=== PATIENT | male | born 1960 | race Caucasian/White ===

== ENCOUNTER 2019-01-15 08:51 | Emergency (ER) | payer OTHER ==
[~2019-01-15] VITALS: Ht 182.9 cm; Wt 105.0 kg
[2019-01-15 08:55] VITALS: BP 136/87
== END 2019-01-15 09:59 | disposition home or self-care (01) ==
LOC: ED 09:06
DX: J04.0 Acute laryngitis (principal); L50.1 Idiopathic urticaria; R05 Cough; K21.9 Gastro-esophageal reflux disease without esophagitis; E78.5 Hyperlipidemia, unspecified; Z87.891 Personal history of nicotine dependence
CPT/HCPCS: 71046; 99282; 99283

== ENCOUNTER 2019-01-28 17:40 | Emergency (ER) | payer OTHER ==
[~2019-01-28] VITALS: Ht 182.9 cm; Wt 105.9 kg
[2019-01-28 17:46] VITALS: BP 148/76
== END 2019-01-28 19:33 | disposition home or self-care (01) ==
LOC: ED 18:12
DX: S29.011A Strain of muscle and tendon of front wall of thorax, initial encounter (principal); M94.0 Chondrocostal junction syndrome [Tietze]; K21.9 Gastro-esophageal reflux disease without esophagitis; E78.5 Hyperlipidemia, unspecified; X58.XXXA Exposure to other specified factors, initial encounter; Y93.89 Activity, other specified; Y92.009 Unspecified place in unspecified non-institutional (private) residence as the place of occurrence of the external cause; Y99.8 Other external cause status
CPT/HCPCS: 71045; 93005; 96372; 99283; J1885